=== PATIENT | male | born 1945 | race Two or more races ===

== ENCOUNTER 2017-10-02 23:01 | Inpatient (IN) | payer MEDICARE ==
[~2017-10-02] VITALS: Ht 177.8 cm; Wt 74.6 kg
[2017-10-03 01:00] VITALS: BP 141/78
[2017-10-03] MEDS ORDERED: VANCOMYCIN 1 GM in IV D5W 250 ML IV SCH (01:30)
[2017-10-03] MEDS ORDERED: ZOLPIDEM TARTRATE 5 MG TABLET PO PRN (01:30)
[2017-10-03] MEDS ORDERED: ONDANSETRON HCL/PF 4 MG/2 ML VIAL IVP PRN (01:30)
[2017-10-03] MEDS ORDERED: ALBUTEROL FS 2.5 MG/3 ML VIAL.NEB NEB PRN (01:30)
[2017-10-03] MEDS ORDERED: MAG HYDROX/AL HYDROX/SIMETH 30 ML UDC PO PRN (01:30)
[2017-10-03] MEDS ORDERED: ENOXAPARIN SODIUM 40 MG/0.4 ML DISP.SYRIN SQ SCH (01:30)
[2017-10-03] MEDS ORDERED: CEFTRIAXONE 1 G in IV D5W 50 ML IV SCH ×2 (01:30→18:00)
[2017-10-03] MEDS ORDERED: MAGNESIUM HYDROXIDE 30 ML UDC PO PRN (01:30)
[2017-10-03] MEDS ORDERED: Z GUARD REMEDY 2 OZ OINT TP PRN (01:30)
--- NOTE | 2017-10-03 01:50 | NUR ---
BIOFUELS MANAGER ADMIN NOTES PT ARRIVED TO UNIT VIA GURNEY, TRANSFER FROM [facility]. PT IS UNABLE TO AMBULATE AT THIS TIME. PT IS ABLE TO FOLLOW SIMPLE COMMANDS BUT IS DISORIENTED AND INCOHERENT BUT IS ORIENTED TO PLACE AND TIME. SPEECH IS GARBLED. PT IS IN AND OUT OF SLEEP. PT COMPLAINS OF NECK PAIN ONLY WITH MOVEMENT. ALL IMAGING FROM [facility] [place] WERE NEGATIVE OTHER THAN MRI OF THORACIC THAT SHOWED LEAKAGE IN T3 & T4. ORDERS TO BE CARRIED OUT PER DR FERNANDES. BED IS IN LOW AND LOCKED POSITION, BED ALARM IS ON. WILL CONTINUE TO MONITOR PT.
--- NOTE | 2017-10-03 02:00 | NUR ---
ANTIBIOTICS WERE NOT ADMINISTERED BECAUSE THEY WERE GIVEN PREVIOUSLY AT [facility]
[2017-10-03] MEDS ORDERED: ENOXAPARIN SODIUM 40 MG/0.4 ML DISP.SYRIN SQ ONE (02:01)
[2017-10-03] MEDS: IV NS 0.9% 1,000 ML IV PRN ×2 (02:19→20:45)
[2017-10-03 04:00] VITALS: BP 116/60
--- NOTE | 2017-10-03 06:20 | NUR ---
PAGED EPIC ON-CALL TO RELAY PTS BLOOD CULTURE RESULTS FROM [place] AND REQUEST REPEAT BLOOD CULTURE. AWAITING CALL BACK
--- NOTE | 2017-10-03 06:52 | NUR ---
PAGED EPIC AGAIN, AWAITING CALL BACK
--- NOTE | 2017-10-03 06:55 | NUR ---
EXPLOSIVE ORDNANCE SPECIALIST CLOSING NOTES PT IS IN BED RESTING. NO SIGNS OF SOB OR DISTRESS. BREATHING EVENLY AND UNLABORED ON RA. IV FLUIDS INFUSING AT 75 ML/HR. AWAITING EPIC CALL BACK. BED IS IN LOW AND LOCKED POSITION, CALL LIGHT WITHIN REACH. WILL ENDORSE TO DAYSHIFT
--- NOTE | 2017-10-03 07:32 | NUR ---
PROBATION AND PAROLE OFFICER/OPENING NOTES RECEIVED PT. IN BED A&OX2, PERIODS OF CONFUSION. TELE MONITOR READING SINUS TACHYCARDIA 102 BPM. BREATHING UNLABORED, AND EVENLY ON OXYGEN AT 1L/MIN VIA NASAL CANNULA. NO S/S OF ACUTE DISTRESS. IV FLUIDS RUNNING AT 75 ML/HR. URINAL AND BEDSIDE COMMODE AT BEDSIDE. BED IS IN LOWEST, AND LOCKED POSITION, 2 SIDE RAILS UP, AND INSTRUCTED PT. TO USE CALL LIGHT FOR ASSISTANCE. ALL NEEDS MET. WILL CONTINUE TO ASSESS AND MONITOR.
[2017-10-03 07:41] LABS: INR 1.03 (0.87-1.13)
[2017-10-03 07:42] LABS: CALCIUM, SERUM 8.4 mg/dL (8.5-10.1); CARBON DIOXIDE 26 mmol/L (21-32); CHLORIDE 104 mmol/L (98-107); CREATININE 1.1 mg/dL (0.6-1.3); GLUCOSE 121 mg/dL (74-106); MAGNESIUM 1.8 mg/dL (1.8-2.4); POTASSIUM 3.6 mmol/L (3.5-5.1); SODIUM SERUM 139 mmol/L (136-145); UREA NITROGEN, BLOOD 16 mg/dL (7-18)
[2017-10-03 07:46] LABS: BASOPHILS % (AUTO) 0.3 % (0.0-2.0); HEMATOCRIT 40 % (39-51); HEMOGLOBIN 13.6 g/dL (13.5-17.5); LYMPHOCYTES # (AUTO) 0.7 /CMM (0.8-4.8); LYMPHOCYTES % (AUTO) 5.5 % (20.0-44.0); MEAN CORPUSCULAR HEMOGLOBIN 28 PG (26.0-33.0); MEAN CORPUSCULAR HGB CONC 34 g/dl (31.0-36.0); MEAN CORPUSCULAR VOLUME 81 fL (80-96); MONOCYTES # (AUTO) 0.4 /CMM (0.1-1.30); MONOCYTES % (AUTO) 3.3 % (2.0-12.0); NEUTROPHILS # (AUTO) 11.7 /CMM (1.8-8.9); NEUTROPHILS % (AUTO) 90.9 % (43.0-81.0); PLATELET COUNT (AUTO) 133 /CMM (150-450); RDW COEFFICIENT OF VARIATION 14.8 (11.5-15.0); RED BLOOD CELL COUNT(AUTO) 4.92 MIL/uL (4.5-6.0); WHITE BLOOD COUNT (AUTO) 12.9 K/uL (4.3-11.0)
[2017-10-03 08:00] VITALS: BP 134/69
[2017-10-03] MEDS: ACETAMINOPHEN 325 MG TABLET PO PRN ×3 (08:17→23:28)
[2017-10-03 09:13] LABS: APPEARANCE,URINE CLEAR (CLEAR); BILIRUBIN,URINE NEGATIVE (NEGATIVE); BLOOD, URINE 1+ Ery/uL (NEGATIVE); COLOR,URINE YELLOW (YELLOW); KETONES,URINE 1+ (NEGATIVE); LEUKOCYTE ESTERASE ,URINE NEGATIVE (NEGATIVE); NITRITE, URINE NEGATIVE (NEGATIVE); PROTEIN,URINE TRACE mg/dl (NEGATIVE); UGLUCOSE NEGATIVE (NEGATIVE)
[2017-10-03 09:26] LABS: BACTERIA,URINE None seen /HPF (None Seen); SQUAMOUS EPITHELIAL CELL,UR None Seen /HPF (None Seen); WBC,URINE NONE SEEN /HPF (0-3)
[2017-10-03] MEDS ORDERED: FEE PK DOSING 1 MIN EA MC ONE (09:37)
[2017-10-03] MEDS: HYDROCODONE/APAP 5/325MG 1 EACH TABLET PO PRN ×2 (09:48→20:45)
--- NOTE | 2017-10-03 13:00 | NUR ---
RN NOTES FAXED TO COLLYER A RELEASE OF PT. INFORMATION FOR SPINAL TAP RESULTS. PER COLLYER RESULTS ARE PENDING AND WILL BE FAXED WITH RESULTS TOMORROW.
[2017-10-03] MEDS: VANCOMYCIN 1 GM in IV D5W 250 ML IV SCH (13:22)
[2017-10-03 16:00] VITALS: BP 118/62
[2017-10-03] MEDS: CEFTRIAXONE 2 G in IV D5W 100 ML IV SCH (16:45)
[2017-10-03] MEDS: D5W IV SCH (18:08)
[2017-10-03] MEDS: ACYCLOVIR IV SCH (18:08)
--- NOTE | 2017-10-03 19:01 | NUR ---
CARPENTER REPAIRER/OPENING NOTES RECEIVED PT. IN BED A&OX2, PERIODS OF CONFUSION. BREATHING UNLABORED, AND EVENLY ON OXYGEN AT 1L/MIN VIA NASAL CANNULA. NO S/S OF ACUTE DISTRESS. IV ANTIBIOTICS RUNNING AT 100 ML/HR. URINAL AND BEDSIDE COMMODE AT BEDSIDE. BED IS IN LOWEST, AND LOCKED POSITION, 2 SIDE RAILS UP, AND INSTRUCTED PT. TO USE CALL LIGHT FOR ASSISTANCE. ALL NEEDS MET. WILL ENDORSE REPORT TO NURSE. Addendum: 10/03/17 at 1905 by CLAIR OCAMPO RN NOTE ERROR. CLOSING NOTES ABOVE.
--- NOTE | 2017-10-03 19:30 | NUR ---
MS RN OPENING NOTES: PATIENT IN BED, AOX3, ON O2 AT 1 LPM VIA NC, BREATHING EVEN AND UNLABORED. BREATH SOUNDS CLEAR TO AUSCULTATION. APPEARS CALM, BUT COMPLAINS OF NECK STIFFNESS AND RIGIDITY. PER PATIENT, HIS NECK PAIN WORSENS WHENEVER HE TRIES TO MOVE. PIV OVER RAC G 20 INTACT AND PATENT, INFUSING CURRENTLY WITH ACYCLOVIR IV. PROVIDED FOR COMFORT AND SAFETY. BED IN LOWEST AND LOCKED POSITION, SIDERAILS UP X 3. MAINTAINED HOB ELEVATED. WILL CONT TO MONITOR.
[2017-10-03 20:00] VITALS: BP 115/63
[2017-10-03] MEDS: ENOXAPARIN SODIUM 40 MG/0.4 ML DISP.SYRIN SQ SCH (20:54)
--- NOTE | 2017-10-03 20:54 | NUR ---
RN NOTES: PATIENT COMPLAINED OF 9/10 PAIN OVER HIS NECK. ADMINISTERED NORCO 5-325 MG PO. POSITIONED FOR COMFORT. WILL CONT TO MONITOR.
[2017-10-04] MEDS: D5W IV SCH ×3 (02:09→17:25)
[2017-10-04] MEDS: ACYCLOVIR IV SCH ×3 (02:09→17:25)
[2017-10-04] MEDS: CEFTRIAXONE 2 G in IV D5W 100 ML IV SCH ×2 (05:06→16:07)
--- NOTE | 2017-10-04 05:13 | NUR ---
RN NOTES: TEMP CHECKED NOW AT 98.3.
[2017-10-04] MEDS: HYDROCODONE/APAP 5/325MG 1 EACH TABLET PO PRN ×2 (06:48→19:01)
[2017-10-04] MEDS: VANCOMYCIN 1 GM in IV D5W 250 ML IV SCH (06:48)
--- NOTE | 2017-10-04 07:15 | NUR ---
MS RN CLOSING NOTES: PATIENT IN BED, AOX4, ON O2 AT 1 LPM VIA NC, BREATHING EVEN AND UNLABORED. APPEARS CALM AND IN NO DISTRESS, BUT STILL COMPLAINING OF NECK PAIN. NOW AFEBRILE. PIV OVER RAC INTACT AND INFUSING WELL WITH IV VANCOMYCIN. DUE MEDS GIVEN. PROVIDED FOR COMFORT AND SAFETY. BED IN LOWEST AND LOCKED POSITION, SIDERAILS UP X 3, CALL LIGHT WITHIN REACH. WILL ENDORSE TO AM RN FOR KALA.
--- NOTE | 2017-10-04 07:30 | NUR ---
RN OPEN NOTES RECEIVED REPORT FROM APPLIQUE SEWER NURSE. PATIENT IS IN BED, ALERT AND ORIENTED TO NAME, PLACE AND TIME. NO SIGNS AND SYMPTOMS OF DISTRESS. NECK PAIN 6/10 NOTED. BED IN LOW POSITION LOCKED AND TWO SIDE RAILS ARE UP. CALL LIGHT WITHIN REACH FOR SAFETY. DROPLET ISOLATION. WILL CONTINUE TO MONITOR AND ASSESS PATIENT
[2017-10-04 07:35] LABS: BASOPHILS % (AUTO) 0.3 % (0.0-2.0); EOSINOPHILS % (AUTO) 0.2 % (0.0-6.0); HEMATOCRIT 36 % (39-51); HEMOGLOBIN 12.1 g/dL (13.5-17.5); LYMPHOCYTES # (AUTO) 0.6 /CMM (0.8-4.8); LYMPHOCYTES % (AUTO) 7.3 % (20.0-44.0); MEAN CORPUSCULAR HEMOGLOBIN 27 PG (26.0-33.0); MEAN CORPUSCULAR HGB CONC 33 g/dl (31.0-36.0); MEAN CORPUSCULAR VOLUME 82 fL (80-96); MONOCYTES # (AUTO) 0.6 /CMM (0.1-1.30); MONOCYTES % (AUTO) 7.1 % (2.0-12.0); NEUTROPHILS # (AUTO) 6.8 /CMM (1.8-8.9); NEUTROPHILS % (AUTO) 85.1 % (43.0-81.0); PLATELET COUNT (AUTO) 106 /CMM (150-450); RDW COEFFICIENT OF VARIATION 14.6 (11.5-15.0); RED BLOOD CELL COUNT(AUTO) 4.43 MIL/uL (4.5-6.0)
[2017-10-04 07:49] LABS: CALCIUM, SERUM 7.8 mg/dL (8.5-10.1); CARBON DIOXIDE 28 mmol/L (21-32); CHLORIDE 106 mmol/L (98-107); CREATININE 0.8 mg/dL (0.6-1.3); GLUCOSE 114 mg/dL (74-106); POTASSIUM 3.5 mmol/L (3.5-5.1); SODIUM SERUM 141 mmol/L (136-145); UREA NITROGEN, BLOOD 17 mg/dL (7-18)
[2017-10-04 07:52] LABS: CHOLESTEROL 137 mg/dL (<200); HDL CHOLESTEROL 53 mg/dL (40-60); LDL 70 mg/dL (0-99); TRIGLYCERIDES 81 mg/dL (30-150)
[2017-10-04 08:00] VITALS: BP 124/70
--- NOTE | 2017-10-04 13:00 | NUR ---
PATIENT REFUSED TO BE CHANGED, REFUSED TO CHANGE LINEN.
[2017-10-04] MEDS: ACETAMINOPHEN 325 MG TABLET PO PRN (13:12)
[2017-10-04] MEDS ORDERED: K PHOS NEUTRAL 250 MG TABLET PO ONE (15:30)
[2017-10-04 16:00] VITALS: BP 122/75
--- NOTE | 2017-10-04 18:31 | NUR ---
PATIENT REFUSED TO BE CLEANED AND CHANGED
--- NOTE | 2017-10-04 18:38 | NUR ---
RN CLOSING NOTES: PATIENT IN BED, ALERT AND ORIENTED TO NAME, PLACE AND TIME. BREATHING EVEN AND UNLABORED. APPEARS CALM AND IN NO DISTRESS. IV INTACT AND PATENT. DUE MEDS GIVEN. PHOSPHORUS REPLACED ORDERED. PROVIDED FOR COMFORT AND SAFETY. PATIENT REFUSED TO BE CHANGED OR TURNED. BED IN LOWEST AND LOCKED POSITION, SIDE RAILS UP X 3. CALL LIGHT WITHIN REACH FOR SAFETY. WILL ENDORSE TO LIVE IN CAREGIVER RN FOR KALA.
[2017-10-04 20:00] VITALS: BP 122/64
--- NOTE | 2017-10-04 20:07 | NUR ---
ms/rn opening notes patient in bed, alert,oriented, able to verbalize needs, no pain reported, resting comfortably in bed with oxygen via nc at 2l, iv patent with no s/s of infiltrattion, , Right ac ns at 75ml /hr, john replace iv fluid, monitor patient and provide snacks. will continue monitoring.
[2017-10-04] MEDS: IV NS 0.9% 1,000 ML IV PRN (20:13)
[2017-10-04 20:34] VITALS: BP 122/64
[2017-10-04] MEDS: ENOXAPARIN SODIUM 40 MG/0.4 ML DISP.SYRIN SQ SCH (21:11)
[2017-10-05] MEDS: VANCOMYCIN 1 GM in IV D5W 250 ML IV SCH ×2 (00:59→14:01)
[2017-10-05] MEDS: HYDROCODONE/APAP 5/325MG 1 EACH TABLET PO PRN ×2 (01:01→05:03)
--- NOTE | 2017-10-05 01:12 | NUR ---
ms/rn notes patient awoken from sleep, complaining of neck pain , norco 5-325mg po tablet given, warm towel provided in neck area will monitor pain and effectiveness.
[2017-10-05] MEDS: ACYCLOVIR IV SCH ×3 (02:32→17:42)
[2017-10-05] MEDS: D5W IV SCH ×3 (02:32→17:42)
[2017-10-05] MEDS: CEFTRIAXONE 2 G in IV D5W 100 ML IV SCH ×2 (04:56→16:50)
--- NOTE | 2017-10-05 05:12 | NUR ---
ms/rn notes Patient reported pain 7/ in right neck pain, verbalizes needs, oral pain med given, will monitor effectiveness.
--- NOTE | 2017-10-05 07:11 | NUR ---
MS/RN CLOSING NOTES PATIENT IN BED, ASSISTED AND PROVIDED FLUIDS, KEEP COMFORTABLE, REFUSE TO BE CHANGE PER PRODUCTION TROUBLESHOOTER INFORM AND VERBALZIE UNDERSTANDING LAST PAIN MEDICATION GIVEN AT 5AM, CALL LIGHTS WITHIN REACH, BED IN LOCK POSITION. WILL ENDORSE TO AM RN FOR KALA.
--- NOTE | 2017-10-05 07:20 | NUR ---
RN OPEN NOTES RECEIVED REPORT FROM COOK'S ASSISTANT NURSE. PATIENT IS IN BED, WITH HIS EYES CLOSED. EASILY AROUSED TO CALLING HIS NAME. NO SIGNS AND SYMPTOMS OF DISTRESS. MEDICATED WITH NORCO AT 5AM FOR PAIN NECK. BED IN LOW POSITION LOCKED AND TWO SIDE RAILS ARE UP. CALL LIGHT WITHIN REACH FOR SAFETY. DROPLET ISOLATION. WILL CONTINUE TO MONITOR AND ASSESS PATIENT
[2017-10-05 08:00] VITALS: BP 129/75
--- NOTE | 2017-10-05 09:00 | NUR ---
ASSESSED PAIN. PAIN LEVEL 0/10.
[2017-10-05 09:06] LABS: CALCIUM, SERUM 8.1 mg/dL (8.5-10.1); CARBON DIOXIDE 28 mmol/L (21-32); CHLORIDE 103 mmol/L (98-107); CREATININE 0.7 mg/dL (0.6-1.3); GLUCOSE 114 mg/dL (74-106); PHOSPHORUS 2.6 mg/dL (2.5-4.9); POTASSIUM 3.5 mmol/L (3.5-5.1); SODIUM SERUM 140 mmol/L (136-145); UREA NITROGEN, BLOOD 10 mg/dL (7-18)
--- NOTE | 2017-10-05 09:10 | NUR ---
CALLED [facility] FOR FINAL LP RESULTS. RE-FAXED REQUEST FORM WITH ATTN TO SHANNAN
[2017-10-05] MEDS: IV NS 0.9% 1,000 ML IV PRN (14:01)
[2017-10-05 16:00] VITALS: BP 140/83
[2017-10-05] MEDS ORDERED: HYDROCODONE/APAP 10/325MG 1 EA TABLET PO PRN (17:30)
[2017-10-05] MEDS ORDERED: HYDROMORPHONE 1 MG/1 ML DISP.SYRIN IV PRN (17:30)
--- NOTE | 2017-10-05 18:32 | NUR ---
RN CLOSING NOTES: PATIENT IN BED, ALERT AND ORIENTED TO NAME, PLACE AND TIME. BREATHING EVEN AND UNLABORED. APPEARS CALM AND IN NO DISTRESS. IV INTACT AND PATENT. DUE MEDS GIVEN. PROVIDED FOR COMFORT AND SAFETY. PATIENT REFUSED TO BE TURNED. BED IN LOWEST AND LOCKED POSITION, SIDE RAILS UP X 2. CALL LIGHT WITHIN REACH FOR SAFETY. WILL ENDORSE TO LINUX DEVOPS ENGINEER RN FOR KALA.
[2017-10-05] MEDS: ACETAMINOPHEN 325 MG TABLET PO PRN (19:00)
[2017-10-05 20:00] VITALS: BP 117/69
--- NOTE | 2017-10-05 20:00 | NUR ---
MS/RN OPENING NOTES PATIENT IN BED, RECEIVED ENDORSEMENT FROM AM RN FOR KALA. PATIENT ALERT,, ORIENTED ABLE TO VERBALIZE NEEDS, ASSISTED WITH NEED, OFFERED FLUIDS, IV SITE CHECK, PATENT W/ NO S/S OF INFILTRATION. MONITORING FOR SAFETY, KEEP SKIN INTACT AND DRY, MONITORING FOR PAIN IN NECK, OXYGEN AT 2L VIA NC.BED IN LOCK POSITION . WILL CONTINUE TO MONITOR.
[2017-10-05 20:09] VITALS: BP 117/69
[2017-10-05] MEDS: ENOXAPARIN SODIUM 40 MG/0.4 ML DISP.SYRIN SQ SCH (22:13)
[2017-10-06] MEDS: VANCOMYCIN 1 GM in IV D5W 250 ML IV SCH ×2 (01:58→13:37)
[2017-10-06] MEDS: D5W IV SCH ×3 (03:30→18:36)
[2017-10-06] MEDS: ACYCLOVIR IV SCH ×3 (03:30→18:36)
[2017-10-06] MEDS: CEFTRIAXONE 2 G in IV D5W 100 ML IV SCH ×2 (05:22→17:58)
--- NOTE | 2017-10-06 06:22 | NUR ---
ms/rn closing notes patient resting comfortably in bed, able to verbalize needs, no guarding and no grimace observed, respirations even and unlabored, iv on lfa gauge 20 patent w/ no s/s of infiltration, bed in lock position will endorse to am rn for mery.
--- NOTE | 2017-10-06 06:43 | NUR ---
TEXTED DR. HERNANDEZ FOR MRI APPROVAL.
--- NOTE | 2017-10-06 07:00 | NUR ---
MS RN OPENING NOTES RECEIVED PATIENT IN BED ALERT ORIENTED X4, HOB ELEVATED. NO SOB NOTED. NO ACUTE DISTRESS NOTED. BREATHING UNLABORED. IV ACCESS PATENT PATENT AND INTACT. NO REDNESS OR SWELLING ON THE SITE. . SAFETY MEASURES IN PLACE. CALL LIGHT WITHIN REACH.WILL CONTINUE TO MONITOR ACCORDINGLY.
[2017-10-06 08:00] VITALS: BP 129/80
[2017-10-06 08:12] LABS: BASOPHILS % (AUTO) 0.1 % (0.0-2.0); EOSINOPHILS # (AUTO) 0.1 /CMM (0.0-0.7); EOSINOPHILS % (AUTO) 0.9 % (0.0-6.0); HEMATOCRIT 35 % (39-51); HEMOGLOBIN 11.6 g/dL (13.5-17.5); LYMPHOCYTES % (AUTO) 14.7 % (20.0-44.0); MEAN CORPUSCULAR HEMOGLOBIN 27 PG (26.0-33.0); MEAN CORPUSCULAR HGB CONC 33 g/dl (31.0-36.0); MEAN CORPUSCULAR VOLUME 81 fL (80-96); MONOCYTES # (AUTO) 0.6 /CMM (0.1-1.30); MONOCYTES % (AUTO) 9.5 % (2.0-12.0); NEUTROPHILS # (AUTO) 4.9 /CMM (1.8-8.9); NEUTROPHILS % (AUTO) 74.8 % (43.0-81.0); PLATELET COUNT (AUTO) 131 /CMM (150-450); RDW COEFFICIENT OF VARIATION 14.7 (11.5-15.0); RED BLOOD CELL COUNT(AUTO) 4.32 MIL/uL (4.5-6.0); WHITE BLOOD COUNT (AUTO) 6.6 K/uL (4.3-11.0)
[2017-10-06 08:53] LABS: CALCIUM, SERUM 8.3 mg/dL (8.5-10.1); CARBON DIOXIDE 29 mmol/L (21-32); CHLORIDE 105 mmol/L (98-107); CREATININE 0.7 mg/dL (0.6-1.3); GLUCOSE 115 mg/dL (74-106); POTASSIUM 3.4 mmol/L (3.5-5.1); SODIUM SERUM 141 mmol/L (136-145); UREA NITROGEN, BLOOD 10 mg/dL (7-18)
[2017-10-06] MEDS ORDERED: POTASSIUM CHLORIDE 20 MEQ TAB.PRT.SR PO ONE (10:30)
[2017-10-06 16:00] VITALS: BP 125/69
[2017-10-06] MEDS: ACETAMINOPHEN 325 MG TABLET PO PRN (17:59)
--- NOTE | 2017-10-06 19:00 | NUR ---
MS RN NOTE: PATIENT RESTING IN BED, A/OX3. STABLE, NO ACUTE DISTRESS NOTED. BREATHING EVEN AND UNLABORED, NO SOB NOTED. BED LOCKED AND IN LOWEST POSITION, CALL LIGHT IN REACH. WILL CONTINUE TO MONITOR.
--- NOTE | 2017-10-06 19:00 | NUR ---
MS RN CLOSING NOTES PATIENT IN BED EYES ALERT ORIENTED X 3,VERBALLY RESPONSIVE. HOB ELEVATED. NO SOB NOTED. NO ACUTE DISTRESS NOTED. BREATHING UNLABORED. IV ACCESS PATENT PATENT AND INTACT. NO REDNESS OR SWELLING ON THE SITE.DUE MEDICATIONS GIVEN, NO ASE NOTED. MRI DONE , PATIENT CAME BACK IN STABLE CONDITION. NEEDS ATTENDED. SAFETY MEASURES IN PLACE. CALL LIGHT WITHIN REACH.ENDORSED TO TEST LEAD APPLICATION TESTING NURSE FOR CONTINUITY OF CARE.
[2017-10-06 20:00] VITALS: BP 124/74
[2017-10-06] MEDS: IV NS 0.9% 1,000 ML IV PRN (21:46)
[2017-10-06] MEDS: ENOXAPARIN SODIUM 40 MG/0.4 ML DISP.SYRIN SQ SCH (21:48)
[2017-10-06] MEDS: VANCOMYCIN 1 GM in IV NS 0.9% 250 ML IV SCH (21:48)
[2017-10-07] MEDS: D5W IV SCH ×3 (01:18→21:39)
[2017-10-07] MEDS: ACYCLOVIR IV SCH ×3 (01:18→21:39)
[2017-10-07] MEDS: CEFTRIAXONE 2 G in IV D5W 100 ML IV SCH ×2 (04:21→20:45)
[2017-10-07] MEDS: VANCOMYCIN 1 GM in IV NS 0.9% 250 ML IV SCH ×3 (04:59→22:37)
--- NOTE | 2017-10-07 06:20 | NUR ---
MS RN CLOSING NOTES PT COMFORTABLY ASLEEP AND EASILY AWAKEN, ON O2 2LPM VIA NC 02 SAT 98% IN STABLE CONDITION. NOT IN FORM OF DISTRESS, RESPIRATION EVEN AND UNLABORED. KEPT CLEAN AND DRY AND COMFORTABLE, ALL NURSING CARE RENDERED. NEEDS ATTENDED AND ANTICIPATED, FREQUENT VISUAL CHECK DONE FOR SAFETY EVERY 2 HOURS. NO COMPLAINS OF PAIN. ON LOW BED AT ALL TIMES TO ENSURE SAFETY. SAFE HAZARD FREE ENVIRONMENT PROVIDED. CALL LIGHT WITHIN EASY TO REACH. WILL ENDORSE NEXT SHIFT CONTINUITY OF CARE
--- NOTE | 2017-10-07 07:00 | NUR ---
RN OPENING NOTES RECEIVED PATIENT IN BED ALERT ORIENTED X3. HOB ELEVATED.NO ACUTE DISTRESS NOTED. BREATHING UNLABORED. IV ACCESS PATENT AND INTACT, NO REDNESS OR SWELLING NOTED. SAFETY MEASURES IN PLACE. CALL LIGHT WITHIN REACH. WILL CONTINUE TO MONITOR ACCORDINGLY.
[2017-10-07 07:54] LABS: CALCIUM, SERUM 8.4 mg/dL (8.5-10.1); CARBON DIOXIDE 29 mmol/L (21-32); CHLORIDE 105 mmol/L (98-107); CREATININE 0.7 mg/dL (0.6-1.3); GLUCOSE 121 mg/dL (74-106); POTASSIUM 3.3 mmol/L (3.5-5.1); SODIUM SERUM 143 mmol/L (136-145); UREA NITROGEN, BLOOD 10 mg/dL (7-18)
[2017-10-07 08:10] LABS: ALBUMIN 2.4 g/dL (3.4-5.0); BILIRUBIN,DIRECT 0.2 mg/dL (0.0-0.2); BILIRUBIN,TOTAL 0.6 mg/dL (0.2-1.0); TOTAL PROTEIN, SERUM 6.9 g/dL (6.4-8.2)
[2017-10-07 08:39] LABS: THYROID STIMULATING HORMONE 1.301 uIU/mL (0.358-3.74)
[2017-10-07 08:46] VITALS: BP 141/90
[2017-10-07] MEDS ORDERED: POTASSIUM CHLORIDE 20 MEQ TAB.PRT.SR PO ONE (09:00)
--- NOTE | 2017-10-07 09:00 | NUR ---
MS RN NOTES SEEN BY MADELINE DE LA FUENTE WITH NEW ORDER MADE. NOTED AND CARRIED OUT.
--- NOTE | 2017-10-07 11:00 | NUR ---
MS RN NOTES PT EVALUATION DONE, WALKED WITH WALKER WITH PT ABOUT 600 FEET. PATIENT TOLERATED WELL, WITH STABLE VS.
[2017-10-07] MEDS ORDERED: GADOVERSETAMIDE 2.5 MMOL/5 ML VIAL IJ ONE (15:25)
[2017-10-07] MEDS ORDERED: GADOVERSETAMIDE 5 MMOL/10 ML VIAL IJ ONE (15:25)
[2017-10-07 16:07] VITALS: BP 135/83
--- NOTE | 2017-10-07 17:50 | NUR ---
MS RN NOTES FOLLOWED UP ROCEPHIN 2 GM IV AND ACYCLOVIR IV 750 MG WITH PHARMACY SPOKE WITH GRZEGORZ VAZQUEZ.
--- NOTE | 2017-10-07 18:00 | NUR ---
RN CLOSING NOTES PATIENT IN BED ALERT ORIENTED X 4. NO ACUTE DISTRESS NOTED. BREATHING UNLABORED. IV ACCESS PATENT AND INTACT, NO REDNESS OR SWELLING NOTED. HOB ELEVATED. DUE MEDICATIONS GIVEN, NO ASE NOTED. NEEDS ATTENDED.SAFETY MEASURES IN PLACE. CALL LIGHT WITHIN REACH. WILL CONTINUE TO MONITOR ACCORDINGLY.WILL ENDORSE TO STOCK BROKER FOR CONTINUITY OF CARE.
[2017-10-07] MEDS: ACETAMINOPHEN 325 MG TABLET PO PRN (18:16)
--- NOTE | 2017-10-07 19:00 | NUR ---
MS RN NOTES ROCEPHIN 2 GM IV AND ACYCLOVIR IV 750 MG NOT AVAILABLE YET, FOLLOWED UP WITH PHARMACY WILL DELIVER. ENDORSED TO GEOPHYSICAL PROSPECTING SURVEYOR.
--- NOTE | 2017-10-07 19:30 | NUR ---
MS RN OPENING NOTES: PATIENT IN BED, AOX4, ON ROOM AIR, BREATHING EVEN AND UNLABORED. APPEARS CALM AND IN NO DISTRESS, DENIES PAIN, STATES "I FEEL BETTER, " AND "I WNAT TO GO HOME". PIV OVER LFA G 20 INTACT AND PATENT TO FLUSH. PROVIDED FOR COMFORT AND SAFETY. BED IN LOWEST AND LOCKED POSITION. SIDERAILS UP X 2, CALL LIGHT WITHIN REACH. WILL CONT TO MONITOR/
[2017-10-07 20:00] VITALS: BP 127/76
[2017-10-07] MEDS: ENOXAPARIN SODIUM 40 MG/0.4 ML DISP.SYRIN SQ SCH (21:46)
[2017-10-07] MEDS ORDERED: VANCOMYCIN 1 GM VIAL ONE (22:34)
--- NOTE | 2017-10-07 22:38 | NUR ---
RN NOTES: PATIENT'S VANCO TROUGH IS 11. ADMINISTERED VANCO 1 GM IV.
[2017-10-08] MEDS: ACYCLOVIR IV SCH ×2 (03:27→11:07)
[2017-10-08] MEDS: D5W IV SCH ×2 (03:27→11:07)
[2017-10-08] MEDS: CEFTRIAXONE 2 G in IV D5W 100 ML IV SCH (06:50)
--- NOTE | 2017-10-08 07:00 | NUR ---
MS RN CLOSING NOTES: PATIENT IN BED, AOX3, ON ROOM AIR, BREATHING EVEN AND UNLABORED. APPEARS CALM AND IN NO DISTRESS. DENIES PAIN. PIV OVER LFA G 20 INTACT AND INFUSING WELL WITH NS RUNNING AT 75 ML/HR. DUE MEDS GIVEN. PROVIDED FOR COMFORT AND SAFETY. BED IN LOWEST AND LOCKED POSITION, SIDERAILS UP X 3, CALL LIGHT WITHIN REACH. WILL ENDORSE TO AM RN FOR KALA.
--- NOTE | 2017-10-08 07:25 | NUR ---
MS RN OPENING NOTES RECEIVED PATIENT IN BED RESTING COMFORTABLY, A/O X3. HOB ELEVATED.NO ACUTE DISTRESS NOTED. BREATHING EVEN AND UNLABORED. DENIES PAIN OR ANY OTHER DISCOMFORT. IV ACCESS PATENT AND INTACT, NO REDNESS OR SWELLING NOTED. SAFETY MEASURES IN PLACE. CALL LIGHT WITHIN REACH. WILL CONTINUE TO MONITOR.
[2017-10-08 08:00] VITALS: BP 139/80
[2017-10-08 08:22] LABS: CALCIUM, SERUM 8.6 mg/dL (8.5-10.1); CARBON DIOXIDE 27 mmol/L (21-32); CHLORIDE 103 mmol/L (98-107); CREATININE 0.8 mg/dL (0.6-1.3); GLUCOSE 127 mg/dL (74-106); POTASSIUM 3.6 mmol/L (3.5-5.1); SODIUM SERUM 141 mmol/L (136-145); UREA NITROGEN, BLOOD 13 mg/dL (7-18)
[2017-10-08] MEDS ORDERED: VANCOMYCIN 1 GM in IV NS 0.9% 250 ML IV SCH (10:00)
[2017-10-08 10:23] LABS: IMMUNOGLOBULIN A, SERUM 227 mg/dL (61-437); IMMUNOGLOBULIN G, SERUM 1024 mg/dL (700-1600); IMMUNOGLOBULIN M, SERUM 32 mg/dL (15-143)
--- NOTE | 2017-10-08 13:30 | NUR ---
MS BALANCE WHEEL FACER NOTES PATIENT LEFT IN STABLE CONDITION, VITAL SIGNS WNL, NO DISTRESS AT THE TIME OF DISCHARGE. SKIN IS INTACT, DENIES PAIN AND SOB. DISCHARGE INSTRUCTIONS GIVEN TO THE PATIENT, DISCHARGE PAPERS SIGNED. WENT OVER BELONGINGS LIST WITH THE PATIENT, PATIENT IS IN POSSESSION OF ALL THE BELONGINGS. HEALTH TEACHING AND EDUCATION PERFORMED, REPORTABLE SIGNS AND SYMPTOMS DISCUSSED, MEDICATION LIST REVIEWED, PATIENT VERBALIZED UNDERSTANDING OF ALL THE TEACHINGS. REFUSED FLU AND PNEUMONIA VACCINATIONS. PATIENT WAS ADVISED TO FOLLOW UP WITH PRIMARY CARE PHYSICIAN IN 1 WEEK. HEPLOCK REMOVED, WRIST BAND REMOVED. PATIENT WAS ESCORTED OUT OF THE HOSPITAL WITH A FRIEND.
[2017-10-10 09:18] LABS: *WEST NILE VIRUS, IgG, SERUM Positive (Negative)
[2017-10-10 11:12] LABS: *WEST NILE VIRUS, IgM, SERUM Negative (Negative)
[2017-10-11 06:09] LABS: *SPE A/G RATIO 0.8 (0.7-1.7); *SPE ALBUMIN 2.6 g/dL (2.9-4.4); *SPE ALPHA-1-GLOBULIN 0.4 g/dL (0.0-0.4); *SPE BETA GLOBULIN 1.1 g/dL (0.7-1.3); *SPE GLOBULIN, TOTAL 3.4 g/dL (2.2-3.9); *SPE M-SPIKE Not Observed g/dL (Not Observed); *SPEGAMMA GLOBULIN 0.8 g/dL (0.4-1.8)
== END 2017-10-08 13:43 | disposition home or self-care (01) | DRG 871 ==
LOC: TELE 10-03 01:17 → MED 10-03 09:28
PROVIDERS: ADMIT Internal Medicine; ATTEND Internal Medicine
DX: A41.9 Sepsis, unspecified organism (principal); G03.9 Meningitis, unspecified; G95.0 Syringomyelia and syringobulbia; D69.6 Thrombocytopenia, unspecified; M48.02 Spinal stenosis, cervical region; E11.9 Type 2 diabetes mellitus without complications; B95.61 Methicillin susceptible Staphylococcus aureus infection as the cause of diseases classified elsewhere; I34.0 Nonrheumatic mitral (valve) insufficiency; E87.6 Hypokalemia; M43.12 Spondylolisthesis, cervical region; M25.78 Osteophyte, vertebrae
CPT/HCPCS: 36415; 71045-TC; 72156-TC; 72157-TC; 80048-TC; 80061-TC; 80076-TC; 80202-TC; 81000-TC; 82550-TC; 82728-TC; 82746; 82784; 82962-TC; 83540-TC; 83615-TC; 83735-TC; 84100-TC; 84155; 84165; 84439-TC; 84443-TC; 85025-TC; 85610-TC; 85652-TC; 86334; 86706; 86788; 86789; 86803; 87040-TC; 87081-TC; 87340; 87400; 92521; 93307-TC; 94799-TC; 97112-TC; 97116-TC; 97530-TC; A9579; J0133; J0696; J1170; J1650; J3370; J7030; J7050; J7060; Z7610